=== PATIENT | male | born 1950 | race Caucasian/White ===

== ENCOUNTER 2016-11-15 10:48 | Day surgery (SDC) | payer BC ==
--- NOTE | ~2016-11-15 | EGD ---
EGD REPORT [facility] [address] [address] NAME: JORGE LUIS HUITRON : [birth year] STATUS : REG [facility] [place] PAT#: [id number] AGE: 66 ADM/REG DATE : 11/15/16 MR#: [id number] REPORT SERV DATE: 11/15/16 DICTATED BY: TERESITA GUPTA DATE: 11/15/16 REPORT STATUS : Draft TRANSCRIBED BY: [employer] DATE: 11/15/16 [facility] Patient Name: Jorge Luis Huitron Date of : 1950 Attending MD: TERESITA GUPTA MD Procedure Date No Time: 11/15/2016 Procedure: Colonoscopy Indications: Screening for colorectal malignant neoplasm Referring MD: ELIZABETH HERBERT MD Medicines: Monitored Anesthesia Care Complications: No immediate complications. Procedure: Pre-Anesthesia Assessment: - ASA Grade Assessment: III - A patient with severe systemic disease. After I obtained informed consent, the scope was passed under direct vision. Throughout the procedure, the patient's blood pressure, pulse, and oxygen saturations were monitored continuously. The CF [id number] was introduced through the anus and advanced to the cecum, identified by appendiceal orifice and ileocecal valve. The colonoscopy was performed without difficulty. The patient tolerated the procedure well. The quality of the bowel preparation was good. Findings: The digital rectal exam was normal. Pertinent negatives include no palpable rectal lesions. A sessile polyp was found in the ascending colon. The polyp was 10 mm in size. The polyp was removed with a jumbo cold forceps. Resection and retrieval were complete. Two sessile polyps were found in the transverse colon. The polyps were 6 to 8 mm in size. These polyps were removed with a cold snare. Resection and retrieval were complete. Two sessile polyps were found in the sigmoid colon. The polyps were 6 to 8 mm in size. These polyps were removed with a cold snare. Resection and retrieval were complete. Two sessile polyps were found in the rectum. The polyps were 6 to 7 mm in size. These polyps were removed with a cold snare. Resection and retrieval were complete. A sessile polyp was found in the descending colon. The polyp was 5 mm in size. The polyp was removed with a cold snare. Resection was complete, but the polyp tissue was not retrieved. Hemorrhoids were found during retroflexion and were mild. Multiple diverticula were found in the sigmoid colon. EGD REPORT [address] [place]. [address] NAME: JORGE LUIS HUITRON : [birth year] STATUS : REG [facility] [place] PAT#: [id number] AGE: 66 ADM/REG DATE : 11/15/16 MR#: [id number] REPORT SERV DATE: 11/15/16 DICTATED BY: TERESITA GUPTA DATE: 11/15/16 REPORT STATUS : Draft TRANSCRIBED BY: [employer] DATE: 11/15/16 Impression: - One 10 mm polyp in the ascending colon. Resected and retrieved. - Two 6 to 8 mm polyps in the transverse colon. Resected and retrieved. - Two 6 to 8 mm polyps in the sigmoid colon. Resected and retrieved. - Two 6 to 7 mm polyps in the rectum. Resected and retrieved. - One 5 mm polyp in the descending colon. Complete resection. Polyp tissue not retrieved. - Hemorrhoids. Recommendation: - Patient has a contact number available for emergencies. The signs and symptoms of potential delayed complications were discussed with the patient. Return to normal activities tomorrow. Written discharge instructions were provided to the patient. - Regular diet. - Continue present medications. - Await pathology results. - Repeat colonoscopy for surveillance based on pathology results. - Return to GI clinic PRN. Procedure Code(s): --- Professional --- 95493, Colonoscopy, flexible, proximal to splenic flexure; with removal of tumor(s), polyp(s), or other lesion(s) by snare technique 45049, 59, Colonoscopy, flexible, proximal to splenic flexure; with biopsy, single or multiple Diagnosis Code(s): --- Professional --- D12.4, Benign neoplasm of descending colon K62.1, Rectal polyp D12.5, Benign neoplasm of sigmoid colon D12.3, Benign neoplasm of transverse colon D12.2, Benign neoplasm of ascending colon K64.9, Unspecified hemorrhoids Z12.11, Encounter for screening for malignant neoplasm of colon CPT copyright 2013 [employer]. All rights reserved. The codes documented in this report are preliminary and upon drive in teller review may be revised to meet current compliance requirements. EGD REPORT [facility] [address] [address] NAME: JORGE LUIS HUITRON : [birth year] STATUS : REG [facility] [place] PAT#: [id number] AGE: 66 ADM/REG DATE : 11/15/16 MR#: [id number] REPORT SERV DATE: 11/15/16 DICTATED BY: TERESITA GUPTA DATE: 11/15/16 REPORT STATUS : Draft TRANSCRIBED BY: [employer] DATE: 11/15/16 TERESITA GUPTA MD 11/15/2016 1:16 PM This report has been signed electronically. Number of Addenda: 0 Note Initiated On: 11/15/2016 12:32 PM Scope Withdrawal Time 0 hours 33 minutes 16 seconds [address] [id number]
[~2016-11-15 10:48] MED LIST: ASA5GR PO; ASAB PO; BREO ELLIPTA INH; BYSTOLIC10 MG PO; COREG12 PO; CRESTOR20 MG PO; FLEX PO; HALF81 PO; LIOR10 PO; MEDROLPAK4 PO; MSCONT15 PO; MSCONTIN PO; NEUR300 PO; NEUR600 PO; NITROQUICK0.4 MG SL; PCET PO; PERCOCET1 TA4 PO; PRIN10 PO; PROAIR HFA INH; TOPXL25 PO; ULTRAM50 PO; V5 PO; VIB100 PO
== END 2016-11-15 23:59 | disposition home or self-care (01) ==
LOC: DMU 10:48
PROVIDERS: Internal Medicine Gastroenterology
PROC: 0DBP8ZZ Excision of Rectum, Via Natural or Artificial Opening Endoscopic (ICD-10-PCS; 2016-11-15)
PROC: 0DBN8ZZ Excision of Sigmoid Colon, Via Natural or Artificial Opening Endoscopic (ICD-10-PCS; 2016-11-15)
PROC: 0DBK8ZZ Excision of Ascending Colon, Via Natural or Artificial Opening Endoscopic (ICD-10-PCS; 2016-11-15)
PROC: 0DBL8ZZ Excision of Transverse Colon, Via Natural or Artificial Opening Endoscopic (ICD-10-PCS; principal; 2016-11-15 12:30)
PROC: 0DBM8ZZ Excision of Descending Colon, Via Natural or Artificial Opening Endoscopic (ICD-10-PCS; 2016-11-15 12:30)
DX: Z12.11 Encounter for screening for malignant neoplasm of colon (principal); D12.2 Benign neoplasm of ascending colon; D12.3 Benign neoplasm of transverse colon; D12.5 Benign neoplasm of sigmoid colon; K62.1 Rectal polyp; K64.9 Unspecified hemorrhoids; I25.10 Atherosclerotic heart disease of native coronary artery without angina pectoris; I10 Essential (primary) hypertension; J44.9 Chronic obstructive pulmonary disease, unspecified; Z87.891 Personal history of nicotine dependence; Z86.73 Personal history of transient ischemic attack (TIA), and cerebral infarction without residual deficits; Z79.51 Long term (current) use of inhaled steroids; Z79.899 Other long term (current) drug therapy
CPT/HCPCS: 88305